=== PATIENT | female | born 1975 | race Caucasian/White ===

== ENCOUNTER 2022-06-08 14:33 | Outpatient (CLI) | payer BC | END 2022-06-08 14:34 | disposition home or self-care (01) | LOC: CSHMAMMO 14:33 | PROVIDERS: ATTEND Family Medicine | DX: Z12.31 Encounter for screening mammogram for malignant neoplasm of breast (principal); Z85.3 Personal history of malignant neoplasm of breast | CPT/HCPCS: 77063; 77067 ==

== ENCOUNTER 2023-04-05 12:32 | Outpatient (CLI) | payer OTHER | END 2023-04-05 12:33 | disposition home or self-care (01) | LOC: CSHULT 12:32 | PROVIDERS: ATTEND Family Medicine | DX: E04.2 Nontoxic multinodular goiter (principal) | CPT/HCPCS: 76536 ==

== ENCOUNTER 2023-06-20 13:09 | Outpatient (CLI) | payer OTHER | END 2023-06-20 13:10 | disposition home or self-care (01) | LOC: CSHMAMMO 13:09 | PROVIDERS: ATTEND Family Medicine | DX: Z12.31 Encounter for screening mammogram for malignant neoplasm of breast (principal); Z85.3 Personal history of malignant neoplasm of breast | CPT/HCPCS: 77063; 77067 ==